=== PATIENT | female | born 1955 | race Two or more races ===

== ENCOUNTER 2024-10-23 09:01 | Inpatient (IN) | payer MEDICARE ==
[~2024-10-23] VITALS: Ht 167.6 cm; Wt 45.8 kg
[2024-10-23 09:59] LABS: ALCOHOL, BLOOD < 3 mg/dL (0-10)
[2024-10-23 10:13] LABS: APPEARANCE,URINE CLEAR (CLEAR); UGLUCOSE NEGATIVE (NEGATIVE)
[2024-10-23 10:14] LABS: BLOOD, URINE TRACE Ery/uL (NEGATIVE); LEUKOCYTE ESTERASE ,URINE NEGATIVE (NEGATIVE); NITRITE, URINE NEGATIVE (NEGATIVE)
[2024-10-23 10:19] LABS: AMPHETAMINE, URINE NEGATIVE (NEGATIVE); BARBITURATE, URINE NEGATIVE (NEGATIVE); BENZODIAZEPINE, URINE POSITIVE (NEGATIVE); CANNABINOID, URINE NEGATIVE (NEGATIVE); COCCAINE, URINE NEGATIVE (NEGATIVE); OPIATE, URINE NEGATIVE (NEGATIVE)
[2024-10-23 10:59] LABS: ADD URINE CULTURE NO; SQUAMOUS EPITHELIAL CELL,UR Moderate /HPF (None Seen)
[2024-10-23] MEDS ORDERED: LORAZEPAM 0.5 MG TABLET PO PRN ×2 (12:00)
[2024-10-23] MEDS ORDERED: MAG HYDROX/AL HYDROX/SIMETH 30 ML UDC PO PRN (12:00)
[2024-10-23] MEDS ORDERED: MAGNESIUM HYDROXIDE 30 ML UDC PO PRN (12:00)
[2024-10-23] MEDS ORDERED: ACETAMINOPHEN 325 MG TABLET PO PRN (12:00)
[2024-10-23] MEDS ORDERED: TEMAZEPAM 7.5 MG CAPSULE PO PRN ×2 (12:00)
[2024-10-23] MEDS ORDERED: CITA20TA16 PO (12:40)
[2024-10-23] MEDS ORDERED: ESZO3TAB39 PO (12:40)
[2024-10-23] MEDS ORDERED: ALPR0.5T8 PO (12:40)
[2024-10-23 13:56] VITALS: BP 129/70; O2SAT 98
[2024-10-23 15:50] VITALS: BP 132/77; TEMP 98; O2SAT 99
[2024-10-23 19:43] VITALS: BP 120/67; TEMP 98.1; O2SAT 100
[2024-10-23 20:56] VITALS: BP 120/67; TEMP 98.1; O2SAT 100
[2024-10-24 08:00] VITALS: BP 130/72; TEMP 98; O2SAT 98
[2024-10-24 08:52] LABS: ASPARTATE AMINOTRANSFERASE 28.0 U/L (15-37); CALCIUM, SERUM 9.0 mg/dL (8.5-10.1); CREATININE 0.7 mg/dL (0.6-1.3); SODIUM SERUM 139.0 mmol/L (136-145); TOTAL PROTEIN, SERUM 7.0 g/dL (6.4-8.2); UREA NITROGEN, BLOOD 14.0 mg/dL (7-18)
[2024-10-24 08:56] LABS: LDL 249 mg/dL (0-99)
[2024-10-24 16:00] VITALS: BP 124/69; TEMP 97.5; O2SAT 98
[2024-10-24] MEDS ORDERED: LORAZEPAM 0.5 MG TABLET PO PRN (19:00)
[2024-10-24] MEDS ORDERED: TEMAZEPAM 7.5 MG CAPSULE PO PRN (19:00)
[2024-10-24 19:54] VITALS: BP 149/82; TEMP 97.7; O2SAT 100
[2024-10-24] MEDS ORDERED: ALPRAZOLAM 0.25 MG TABLET PO SCH (21:00)
[2024-10-24 22:58] VITALS: BP 132/75; TEMP 98; O2SAT 100
[2024-10-25 08:00] VITALS: BP 111/72; TEMP 98.9; O2SAT 99
[2024-10-25] MEDS ORDERED: CITALOPRAM HYDROBROMIDE 20 MG TABLET PO SCH (09:00)
[2024-10-25] MEDS: CITALOPRAM HYDROBROMIDE 10 MG TABLET PO SCH (12:39)
[2024-10-26] MEDS ORDERED: ASPIRIN 81 MG TAB.CHEW PO SCH (09:00)
== END 2024-10-25 15:21 | disposition home or self-care (01) | DRG 881 ==
LOC: ER 09:25 → GPS 11:11
PROVIDERS: ADMIT Nurse Practitioner Psychiatric/Mental Health; ATTEND Nurse Practitioner Acute Care
DX: F32.9 Major depressive disorder, single episode, unspecified (principal); R45.1 Restlessness and agitation; F29 Unspecified psychosis not due to a substance or known physiological condition; E78.5 Hyperlipidemia, unspecified; I25.10 Atherosclerotic heart disease of native coronary artery without angina pectoris; I10 Essential (primary) hypertension; R41.9 Unspecified symptoms and signs involving cognitive functions and awareness; F41.0 Panic disorder [episodic paroxysmal anxiety]; Z95.5 Presence of coronary angioplasty implant and graft; F41.9 Anxiety disorder, unspecified; F43.20 Adjustment disorder, unspecified; Z91.09 Other allergy status, other than to drugs and biological substances; Z95.2 Presence of prosthetic heart valve
CPT/HCPCS: 36415; 80053-TC; 80061-TC; 81001; 82962-TC; 87081-TC; G0480